=== PATIENT | female | born 1995 | race American Indian/Alaskan Native ===

== ENCOUNTER 2019-04-04 23:51 | Emergency (ER) | payer MEDICAID, OTHER ==
[2019-04-05 00:29] VITALS: BP 124/90
[2019-04-05 00:54] LABS: Basophils % (Auto) 0.5 % (0.0-1.8); Eosinophils % (Auto) 1.1 % (0.0-4.3); Hematocrit 34.2 % (30.3-42.9); Hemoglobin 11.7 gm/dl (10.1-14.3); Lymphocytes # (Auto) 0.7 K/mm3 (1.2-5.4); Lymphocytes % (Auto) 21.7 % (13.4-35.0); Mean Corpuscular HGB Conc 34 % (30-34); Mean Corpuscular Volume 94 fl (79-97); Monocytes # (Auto) 0.2 K/mm3 (0.0-0.8); Monocytes % (Auto) 8.1 % (0.0-7.3); Platelet Count 204 K/mm3 (140-440); Red Blood Count 3.64 M/mm3 (3.65-5.03); Red Cell Distribution Width 13.1 % (13.2-15.2)
[2019-04-05 01:13] LABS: BUN/Creatinine Ratio 28; Blood Urea Nitrogen 14 mg/dL (7-17); Calcium 10.3 mg/dL (8.4-10.2); Hemolysis Index 25
[2019-04-05] MEDS ORDERED: DELTASONE PO STA (03:36)
--- NOTE | 2019-04-05 03:41 | Emergency Department Report ---
ED General Adult HPI - General Chief complaint: Fever Stated complaint: FEVER Time Seen by Provider: 04/05/19 03:34 Source: patient, EMS Mode of arrival: Wheelchair Limitations: No Limitations - History of Present Illness Initial comments: 23-year-old Citizen Of [place] female with a known history of arthritis, lupus/chronic pain presents emergency department complaining of a pain flareup. States she did not have a medication for the last few months due to being incarcerated. She was just released today. She reports no chest pain or shortness of breath, no presyncope, no fevers, chills, sweats. She is a patient at the clinic clinic and instructed to follow-up she can get back on prednisone and Plaquenil -: Gradual, days(s) Location: upper extremity (pain involving the thighs. Extremities. Of the to rso) Radiation: non-radiation Quality: aching, dull Consistency: constant Associated Symptoms: denies: chest pain, cough, diaphoresis, fever/chills, malaise, nausea/vomiting, shortness of breath, syncope, weakness - Related Data Previous Rx's Medication Instructions Recorded Last Taken Type methOCARBAMOL [Robaxin TAB] 750 mg PO Q8H #14 tablet 04/05/19 Unknown Rx predniSONE [Deltasone] 50 mg PO QDAY #10 tab 04/05/19 Unknown Rx Allergies Allergy/AdvReac Type Severity Reaction Status Date / Time acetaminophen [From Percocet] Allergy Hives Verified 04/05/19 00:35 latex Allergy Hives Verified 04/05/19 00:34 oxycodone [From Percocet] Allergy Hives Verified 04/05/19 00:35 ED Review of Systems ROS: Stated complaint: FEVER Other details as noted in HPI Constitutional: denies: chills, fever Eyes: denies: eye pain, eye discharge, vision change ENT: denies: ear pain, throat pain Respiratory: denies: cough, shortness of breath, wheezing Cardiovascular: denies: chest pain, palpitations Endocrine: no symptoms reported Gastrointestinal: denies: abdominal pain, nausea, diarrhea Genitourinary: denies: urgency, dysuria, discharge Musculoskeletal: denies: back pain, joint swelling, arthralgia Skin: denies: rash, lesions Neurological: denies: headache, weakness, paresthesias Psychiatric: denies: anxiety, depression Hematological/Lymphatic: denies: easy bleeding, easy bruising ED Past Medical Hx - Past Medical History Previous Medical History?: Yes Hx Arthritis: Yes (Rheumatoid) Additional medical history: LUPUS, IMPAIRED MOBILITY, CHronic Pain - Surgical History Past Surgical History?: No - Social History Smoking Status: Current Every Day Smoker Substance Use Type: Marijuana - Medications Home Medications: Home Medications Medication Instructions Recorded Confirmed Last Taken Type methOCARBAMOL [Robaxin TAB] 750 mg PO Q8H #14 tablet 04/05/19 Unknown Rx predniSONE [Deltasone] 50 mg PO QDAY #10 tab 04/05/19 Unknown Rx ED Physical Exam - General Limitations: No Limitations General appearance: alert, in no apparent distress - Head Head exam: Present: atraumatic, normocephalic - Eye Eye exam: Present: normal appearance, PERRL, EOMI Pupils: Present: normal accommodation - ENT ENT exam: Present: normal exam, normal orophraynx, mucous membranes moist, TM's normal bilaterally - Neck Neck exam: Present: normal inspection - Respiratory Respiratory exam: Present: normal lung sounds bilaterally. Absent: respiratory distress, rales, rhonchi, chest wall tenderness - Cardiovascular Cardiovascular Exam: Present: regular rate, normal rhythm. Absent: systolic murmur, diastolic murmur, rubs, gallop - GI/Abdominal GI/Abdominal exam: Present: soft, normal bowel sounds - Extremities Exam Extremities exam: Present: normal inspection - Back Exam Back exam: Present: normal inspection, paraspinal tenderness. Absent: CVA tenderness (R), CVA tenderness (L), muscle spasm, vertebral tenderness - Neurological Exam Neurological exam: Present: alert, oriented X3, CN II-XII intact, normal gait - Psychiatric Psychiatric exam: Present: normal affect, normal mood - Skin Skin exam: Present: warm, dry, intact, normal color. Absent: rash ED Course Vital Signs 04/05/19 00:12 Temperature 97.9 F Pulse Rate 90 Respiratory 18 Rate Blood Pressure 124/90 O2 Sat by Pulse 100 Oximetry ED Medical Decision Making - Lab Data Result diagrams: 04/05/19 00:39 04/05/19 00:39 - Medical Decision Making 3-year-old female presents history of rheumatoid arthritis and lupus presents most department for chronic pain. Requesting prednisone. States she is due to follow-up with [facility]. 2. Start her medications after being released from [facility]. No further complaints of concerns. Medications were provided in the emergency department. The risks were provided. Prescription Critical care attestation.: If time is entered above; I have spent that time in minutes in the direct care of this critically ill patient, excluding procedure time. ED Disposition Clinical Impression: Chronic pain, Medication refill Disposition: TO HOME OR SELFCARE Is pt being admited?: No Does the pt Need Aspirin: No Condition: Stable Instructions: Rheumatoid Arthritis (ED), Chronic Pain (ED) Prescriptions: predniSONE [Deltasone] 50 mg PO QDAY #10 tab methOCARBAMOL [Robaxin TAB] 750 mg PO Q8H #14 tablet Referrals: YAEL PERSON MD [Primary Care Provider] - 3-5 Days
== END 2019-04-05 04:30 | disposition home or self-care (01) ==
LOC: ED 23:51
DX: G89.29 Other chronic pain (principal); M06.9 Rheumatoid arthritis, unspecified; Z76.0 Encounter for issue of repeat prescription; M32.9 Systemic lupus erythematosus, unspecified; F17.200 Nicotine dependence, unspecified, uncomplicated; F12.10 Cannabis abuse, uncomplicated; Z88.5 Allergy status to narcotic agent; Z91.040 Latex allergy status
CPT/HCPCS: 36415; 80048; 84703; 85025; 99284; J7512

== ENCOUNTER 2020-06-04 09:51 | Emergency (ER) | payer MEDICAID ==
--- NOTE | 2020-06-04 13:14 | Emergency Department Report ---
ED General Adult HPI - General Chief complaint: Pain General Stated complaint: LUPUS Time Seen by Provider: 06/04/20 13:13 Source: patient, EMS Mode of arrival: Wheelchair Limitations: No Limitations - History of Present Illness Initial comments: 24-year-old -Polish female patient with history of SLE, RA, and chronic pain syndrome presents to ED with complaints of bilateral ankle pain and right- sided neck pain x3 days. Patient states " I am having a lupus flare" and reports she normally gets pain in her ankles and neck when her lupus flares up. She denies any injuries, fever/chills/sweats, headache, decreased range of motion of her neck or ankles, or back pain. Patient is dependent on a walker for ambulation and denies any changes. - Related Data Previous Rx's Medication Instructions Recorded Last Taken Type methOCARBAMOL [Robaxin TAB] 750 mg PO Q8H #14 tablet 06/04/20 Unknown Rx predniSONE [Deltasone] 50 mg PO QDAY #10 tab 06/04/20 Unknown Rx Allergies Allergy/AdvReac Type Severity Reaction Status Date / Time acetaminophen [From Percocet] Allergy Hives Verified 04/05/19 00:35 latex Allergy Hives Verified 04/05/19 00:34 oxycodone [From Percocet] Allergy Hives Verified 04/05/19 00:35 ED Review of Systems ROS: Stated complaint: LUPUS Other details as noted in HPI Constitutional: denies: chills, diaphoresis, fever, malaise, weakness Respiratory: denies: cough, shortness of breath Cardiovascular: denies: chest pain Gastrointestinal: denies: abdominal pain, nausea, vomiting Musculoskeletal: arthralgia. denies: joint swelling Neurological: denies: numbness, paresthesias ED Past Medical Hx - Past Medical History Previous Medical History?: Yes Hx Arthritis: Yes (Rheumatoid) Additional medical history: LUPUS, IMPAIRED MOBILITY, CHronic Pain - Surgical History Past Surgical History?: Yes Additional Surgical History: ectopic - fallopian tube removed - Social History Smoking Status: Never Smoker Substance Use Type: None - Medications Home Medications: Home Medications Medication Instructions Recorded Confirmed Last Taken Type methOCARBAMOL [Robaxin TAB] 750 mg PO Q8H #14 tablet 06/04/20 Unknown Rx predniSONE [Deltasone] 50 mg PO QDAY #10 tab 08/20/20 Unknown Rx ED Physical Exam - General Limitations: No Limitations General appearance: alert, in no apparent distress - Head Head exam: Present: atraumatic, normocephalic - Eye Eye exam: Present: normal appearance. Absent: scleral icterus - ENT ENT exam: Present: mucous membranes moist - Neck Neck exam: Present: tenderness (Right trapezius muscle tenderness noted, no vertebral tenderness noted), full ROM - Respiratory Respiratory exam: Present: normal lung sounds bilaterally. Absent: respiratory distress - Cardiovascular Cardiovascular Exam: Present: regular rate, normal rhythm. Absent: systolic murmur, diastolic murmur, rubs, gallop - Extremities Exam Extremities exam: Present: normal inspection, full ROM (Noted bilaterally of ankles without swelling or erythema). Absent: tenderness - Neurological Exam Neurological exam: Present: alert, oriented X3 - Psychiatric Psychiatric exam: Present: normal affect, normal mood - Skin Skin exam: Present: warm, dry, intact, normal color. Absent: rash, cyanosis, erythema, ecchymosis ED Course Vital Signs 06/04/20 09:52 Temperature 97.9 F Pulse Rate 93 H Respiratory 18 Rate Blood Pressure 126/85 O2 Sat by Pulse 100 Oximetry ED Medical Decision Making - Medical Decision Making Patient here with complaints of lupus flare. Her pain is bilateral her ankles and her neck and she reports this is normal for her lupus flare. She denies any red flag symptoms. No vertebral tenderness or bony tenderness is noted to palpation on exam. Patient states she follows with [facility]. Prednisone given p.o. and a prescription will be given for home along with Robaxin. She is well-appearing, her vitals are normal, she is stable for discharge home. Recommend follow-up with her auditor medical claims. Strict return precautions were discussed in detail with patient who verbalized understanding peer Critical care attestation.: If time is entered above; I have spent that time in minutes in the direct care of this critically ill patient, excluding procedure time. ED Disposition Clinical Impression: Lupus arthritis Disposition: - TO HOME OR SELFCARE Is pt being admited?: No Condition: Stable Instructions: Arthralgia (ED) Prescriptions: predniSONE [Deltasone] 50 mg PO QDAY #10 tab methOCARBAMOL [Robaxin TAB] 750 mg PO Q8H #14 tablet Referrals: PRIMARY CARE, [Primary Care Provider] - 3-5 Days
[2020-06-04] MEDS ORDERED: predniSONE 20 MG TAB PO ONE (13:44)
[2020-06-04 14:38] VITALS: BP 120/85
== END 2020-06-04 14:06 | disposition home or self-care (01) ==
LOC: ED 09:51
DX: M32.10 Systemic lupus erythematosus, organ or system involvement unspecified (principal); M19.90 Unspecified osteoarthritis, unspecified site; Z79.899 Other long term (current) drug therapy; Z91.040 Latex allergy status; Z88.8 Allergy status to other drugs, medicaments and biological substances
CPT/HCPCS: 99283; J7512

== ENCOUNTER 2020-08-07 12:12 | Emergency (ER) | payer MEDICAID ==
--- NOTE | 2020-08-07 13:21 | Event Note ---
ED Screening Note ED Screening Note: 25-year-old F [place] female with past medical history of lupus presents emergency department complaining of a onset of weakness and fatigue associated with cough fever shortness of breath which began after celebrating her birthday on the seventh of this month. Symptoms have been progressively worsening since the onset to the point that she has been experiencing some lightheadedness as well but she reports no chest pain or palpitations no abdominal pain or dysuria no hemoptysis no hematemesis. Plan will evaluate labs and also drug tox screen and EtOH due to her apparent speech pattern consistent with lethargy/intoxicating appearance Will evaluate chest x-ray for shortness of breath This initial assessment/diagnostic orders/clinical plan/treatment(s) is/are subject to change based on patients health status, clinical progression and re- assessment by fellow clinical providers in the ED. Further treatment and workup at subsequent clinical providers discretion. Patient/guardian urged not to elope from the ED as their condition may be serious if not clinically assessed and managed. Initial orders include:
[2020-08-07 15:31] LABS: Basophils % (Auto) 0.3 % (0.0-1.8); Eosinophils % (Auto) 0.3 % (0.0-4.3); Hematocrit 31.7 % (30.3-42.9); Lymphocytes # (Auto) 1.1 K/mm3 (1.2-5.4); Mean Corpuscular HGB Conc 35 % (30-34); Mean Corpuscular Volume 87 fl (79-97); Monocytes # (Auto) 0.9 K/mm3 (0.0-0.8); Monocytes % (Auto) 8.4 % (0.0-7.3); Platelet Count 406 K/mm3 (140-440); Red Blood Count 3.64 M/mm3 (3.65-5.03); Red Cell Distribution Width 13.2 % (13.2-15.2)
[2020-08-07] MEDS ORDERED: SODIUM CHLORIDE 0.9% 1000 ML 1,000 ML IV ONE (15:46)
--- NOTE | 2020-08-07 16:04 | Emergency Department Report ---
HPI - General Chief Complaint: Weakness Time Seen by Provider: 08/07/20 15:38 - HPI HPI: This is a 25-year-old female presents to the emergency department with complaint of some generalized weakness, nausea without vomiting, dehydration and intermittent shortness of breath, that has been going on for the past 2 weeks. She says that the symptoms started "3 days after my birthday" in which the patient was admittedly partying a lot. Patient says that she is able to drink water and keep it down but still feels dehydrated. She has a past medical histo ry of rheumatoid arthritis, lupus, chronic pain, and the patient ambulates with a walker at baseline. She has not taken anything for symptoms prior to presentation today. Patient also says that she had a fever with a T-max of 100.7 earlier today but she does not present with any fever and did not take any medication for her fever prior to arrival. ED Past Medical Hx - Past Medical History Previous Medical History?: Yes Hx Arthritis: Yes (Rheumatoid) Additional medical history: LUPUS, IMPAIRED MOBILITY, CHronic Pain - Surgical History Additional Surgical History: ectopic - fallopian tube removed - Social History Smoking Status: Never Smoker Substance Use Type: None - Medications Home Medications: Home Medications Medication Instructions Recorded Confirmed Last Taken Type methOCARBAMOL [Robaxin TAB] 750 mg PO Q8H #14 tablet 06/04/20 Unknown Rx predniSONE [Deltasone] 50 mg PO QDAY #10 tab 06/04/20 Unknown Rx Nitrofurantoin Isabella/M-Cryst 100 mg PO Q12HR #14 capsule 08/07/20 Unknown Rx [Macrobid CAP] Ondansetron [Zofran Odt] 4 mg PO Q8HR PRN #15 tab.rapdis 08/07/20 Unknown Rx ED Review of Systems ROS: Stated complaint: BACK/KIDNEY PAIN/N/V/LUPUS Other details as noted in HPI Comment: All other systems reviewed and negative Constitutional: fever, weakness Eyes: denies: eye pain, vision change ENT: denies: ear pain, throat pain Respiratory: shortness of breath. denies: cough Cardiovascular: denies: chest pain, palpitations Gastrointestinal: nausea. denies: abdominal pain, vomiting Genitourinary: denies: dysuria, discharge Musculoskeletal: myalgia. denies: joint swelling Skin: denies: rash, lesions Neurological: denies: headache, numbness Physical Exam - Physical Exam Vital Signs: Vital Signs 08/07/20 08/07/20 13:14 13:17 Temperature 98.0 F 98.0 F Pulse Rate 109 H 114 H Respiratory 15 15 Rate Blood Pressure 117/89 Blood Pressure 117/87 [Right] O2 Sat by Pulse 98 97 Oximetry Physical Exam: GENERAL: The patient is well-developed well-nourished. HENT: Normocephalic. Atraumatic. Patient has dry mucous membranes. EYES: Extraocular motions are intact. NECK: Supple. Trachea is midline. CHEST/LUNGS: Clear to auscultation. There is no respiratory distress noted. HEART/CARDIOVASCULAR: Regular. There is no tachycardia. There is no murmur. ABDOMEN: Abdomen is soft, nontender. Patient has normal bowel sounds. There is no abdominal distention. SKIN: Skin is warm and dry. NEURO: The patient is awake, alert, and oriented. The patient is cooperative. The patient has no focal neurologic deficits. Normal speech. Cranial nerves II through XII grossly intact. MUSCULOSKELETAL: There is no tenderness or deformity. Full range of motion. ED Course Vital Signs 08/07/20 08/07/20 13:14 13:17 Temperature 98.0 F 98.0 F Pulse Rate 109 H 114 H Respiratory 15 15 Rate Blood Pressure 117/89 Blood Pressure 117/87 [Right] O2 Sat by Pulse 98 97 Oximetry - Reevaluation(s) Reevaluation #1: 08/07/20 20:00 Lab Results 08/07/20 08/07/20 08/07/20 Range/Units 15:18 15:18 15:18 WBC 11.0 (4.5-11.0) K/mm3 RBC 3.64 L (3.65-5.03) M/mm3 Hgb 11.0 (10.1-14.3) gm/dl Hct 31.7 (30.3-42.9) % MCV 87 (79-97) fl MCH 30 (28-32) pg MCHC 35 H (30-34) % RDW 13.2 (13.2-15.2) % Plt Count 406 (140-440) K/mm3 Lymph % (Auto) 10.0 L (13.4-35.0) % Isabella % (Auto) 8.4 H (0.0-7.3) % Eos % (Auto) 0.3 (0.0-4.3) % Baso % (Auto) 0.3 (0.0-1.8) % Lymph # (Auto) 1.1 L (1.2-5.4) K/mm3 Isabella # (Auto) 0.9 H (0.0-0.8) K/mm3 Eos # (Auto) 0.0 (0.0-0.4) K/mm3 Baso # (Auto) 0.0 (0.0-0.1) K/mm3 Seg Neutrophils % 81.0 H (40.0-70.0) % Seg Neutrophils # 8.9 H (1.8-7.7) K/mm3 Sodium 137 (137-145) mmol/L Potassium 3.8 (3.6-5.0) mmol/L Chloride 97.2 L (98-107) mmol/L Carbon Dioxide 23 (22-30) mmol/L Anion Gap 21 mmol/L BUN 12 (7-17) mg/dL Creatinine 0.9 (0.6-1.2) mg/dL Estimated GFR > 60 ml/min BUN/Creatinine Ratio 13 % Glucose 97 (65-100) mg/dL Calcium 9.3 (8.4-10.2) mg/dL Total Bilirubin 0.40 (0.1-1.2) mg/dL AST 23 (5-40) units/L ALT 10 (7-56) units/L Alkaline Phosphatase 127 (35-129) units/L Total Protein 7.4 (6.3-8.2) g/dL Albumin 3.4 L (3.9-5) g/dL Albumin/Globulin Ratio 0.9 % TSH (0.270-4.200) mlU/mL Free T4 (0.76-1.46) ng/dL Urine Color (Yellow) Urine Turbidity (Clear) Urine pH (5.0-7.0) Ur Specific [place] (1.003-1.030) Urine Protein (Negative) mg/dL Urine Glucose (UA) (Negative) mg/dL Urine Ketones (Negative) mg/dL Urine Blood (Negative) Urine Nitrite (Negative) Urine Bilirubin (Negative) Urine Urobilinogen (<2.0) mg/dL Ur Leukocyte Esterase (Negative) Urine WBC (Auto) (0.0-6.0) /HPF Urine RBC (Auto) (0.0-6.0) /HPF U Epithel Cells (Auto) (0-13.0) /HPF Urine Bacteria (Auto) (Negative) /HPF Urine Yeast (Budding) /HPF Urine HCG, Qual (Negative) Urine Opiates Screen Urine Methadone Screen Ur Barbiturates Screen Ur Phencyclidine Scrn Ur Amphetamines Screen U Benzodiazepines Scrn Urine Cocaine Screen U Marijuana (THC) Screen Drugs of Abuse Note Plasma/Serum Alcohol < 0.01 (0-0.07) % 08/07/20 08/07/20 08/07/20 Range/Units 15:27 15:27 Unknown WBC (4.5-11.0) K/mm3 RBC (3.65-5.03) M/mm3 Hgb (10.1-14.3) gm/dl Hct (30.3-42.9) % MCV (79-97) fl MCH (28-32) pg MCHC (30-34) % RDW (13.2-15.2) % Plt Count (140-440) K/mm3 Lymph % (Auto) (13.4-35.0) % Isabella % (Auto) (0.0-7.3) % Eos % (Auto) (0.0-4.3) % Baso % (Auto) (0.0-1.8) % Lymph # (Auto) (1.2-5.4) K/mm3 Isabella # (Auto) (0.0-0.8) K/mm3 Eos # (Auto) (0.0-0.4) K/mm3 Baso # (Auto) (0.0-0.1) K/mm3 Seg Neutrophils % (40.0-70.0) % Seg Neutrophils # (1.8-7.7) K/mm3 Sodium (137-145) mmol/L Potassium (3.6-5.0) mmol/L Chloride (98-107) mmol/L Carbon Dioxide (22-30) mmol/L Anion Gap mmol/L BUN (7-17) mg/dL Creatinine (0.6-1.2) mg/dL Estimated GFR ml/min BUN/Creatinine Ratio % Glucose (65-100) mg/dL Calcium (8.4-10.2) mg/dL Total Bilirubin (0.1-1.2) mg/dL AST (5-40) units/L ALT (7-56) units/L Alkaline Phosphatase (35-129) units/L Total Protein (6.3-8.2) g/dL Albumin (3.9-5) g/dL Albumin/Globulin Ratio % TSH 0.243 L (0.270-4.200) mlU/mL Free T4 1.40 (0.76-1.46) ng/dL Urine Color (Yellow) Urine Turbidity (Clear) Urine pH (5.0-7.0) Ur Specific [place] (1.003-1.030) Urine Protein (Negative) mg/dL Urine Glucose (UA) (Negative) mg/dL Urine Ketones (Negative) mg/dL Urine Blood (Negative) Urine Nitrite (Negative) Urine Bilirubin (Negative) Urine Urobilinogen (<2.0) mg/dL Ur Leukocyte Esterase (Negative) Urine WBC (Auto) (0.0-6.0) /HPF Urine RBC (Auto) (0.0-6.0) /HPF U Epithel Cells (Auto) (0-13.0) /HPF Urine Bacteria (Auto) (Negative) /HPF Urine Yeast (Budding) /HPF Urine HCG, Qual (Negative) Urine Opiates Screen Presumptive negative Urine Methadone Screen Presumptive negative Ur Barbiturates Screen Presumptive negative Ur Phencyclidine Scrn Presumptive negative Ur Amphetamines Screen Presumptive negative U Benzodiazepines Scrn Presumptive negative Urine Cocaine Screen Presumptive negative U Marijuana (THC) Screen Presumptive negative Drugs of Abuse Note Disclamer Plasma/Serum Alcohol (0-0.07) % 08/07/20 Range/Units Unknown WBC (4.5-11.0) K/mm3 RBC (3.65-5.03) M/mm3 Hgb (10.1-14.3) gm/dl Hct (30.3-42.9) % MCV (79-97) fl MCH (28-32) pg MCHC (30-34) % RDW (13.2-15.2) % Plt Count (140-440) K/mm3 Lymph % (Auto) (13.4-35.0) % Isabella % (Auto) (0.0-7.3) % Eos % (Auto) (0.0-4.3) % Baso % (Auto) (0.0-1.8) % Lymph # (Auto) (1.2-5.4) K/mm3 Isabella # (Auto) (0.0-0.8) K/mm3 Eos # (Auto) (0.0-0.4) K/mm3 Baso # (Auto) (0.0-0.1) K/mm3 Seg Neutrophils % (40.0-70.0) % Seg Neutrophils # (1.8-7.7) K/mm3 Sodium (137-145) mmol/L Potassium (3.6-5.0) mmol/L Chloride (98-107) mmol/L Carbon Dioxide (22-30) mmol/L Anion Gap mmol/L BUN (7-17) mg/dL Creatinine (0.6-1.2) mg/dL Estimated GFR ml/min BUN/Creatinine Ratio % Glucose (65-100) mg/dL Calcium (8.4-10.2) mg/dL Total Bilirubin (0.1-1.2) mg/dL AST (5-40) units/L ALT (7-56) units/L Alkaline Phosphatase (35-129) units/L Total Protein (6.3-8.2) g/dL Albumin (3.9-5) g/dL Albumin/Globulin Ratio % TSH (0.270-4.200) mlU/mL Free T4 (0.76-1.46) ng/dL Urine Color Yellow (Yellow) Urine Turbidity Slightly-cloudy (Clear) Urine pH 6.0 (5.0-7.0) Ur Specific [place] 1.010 (1.003-1.030) Urine Protein <15 mg/dl (Negative) mg/dL Urine Glucose (UA) Neg (Negative) mg/dL Urine Ketones Neg (Negative) mg/dL Urine Blood Sm (Negative) Urine Nitrite Neg (Negative) Urine Bilirubin Neg (Negative) Urine Urobilinogen 4.0 (<2.0) mg/dL Ur Leukocyte Esterase Lg (Negative) Urine WBC (Auto) 155.0 H (0.0-6.0) /HPF Urine RBC (Auto) 6.0 (0.0-6.0) /HPF U Epithel Cells (Auto) 4.0 (0-13.0) /HPF Urine Bacteria (Auto) 1+ (Negative) /HPF Urine Yeast (Budding) 1+ /HPF Urine HCG, Qual Negative (Negative) Urine Opiates Screen Urine Methadone Screen Ur Barbiturates Screen Ur Phencyclidine Scrn Ur Amphetamines Screen U Benzodiazepines Scrn Urine Cocaine Screen U Marijuana (THC) Screen Drugs of Abuse Note Plasma/Serum Alcohol (0-0.07) % ED Medical Decision Making - Lab Data Result diagrams: 08/07/20 15:18 08/07/20 15:18 - EKG Data -: EKG Interpreted by Me EKG shows normal: sinus rhythm, axis, intervals, QRS complexes, ST-T waves Rate: normal - EKG Data When compared to previous EKG there are: previous EKG unavailable Interpretation: normal EKG - Radiology Data Radiology results: image reviewed interpreted by me: Chest x-ray does not show any acute process. There are no pleural effusions, obvious pneumonia and there is no pneumothorax. No significant cardiomegaly. - Medical Decision Making This patient presents with the complaint of some generalized weakness, nausea without vomiting, feeling dehydrated and intermittent shortness of breath, and all the symptoms have been going on for the past 2 weeks. On examination the patient does not have any focal, motor or sensory deficits and her cranial nerves are intact. She has some dry mucous membranes and dry lips. Heart and lung sounds are normal to auscultation. An EKG was done that does not show any morphology consistent with ST elevation myocardial infarction or any dysrhythmia. Chest x-ray does not show any pneumonia, pleural effusions, pneumothorax, focal consolidation, or any acute process. Patient's labs have been mostly unremarkable except for a urinary tract infection with greater than 180 WBCs. The patient was given IV fluid resuscitation, a dose of steroids, and a dose of Rocephin. She was reevaluated multiple times over multiple hours and is feeling improved. Patient is able to ambulate at her baseline status with her walker as she has a history of impaired mobility. Patient says that she uses her front end architect as a primary care physician, but I have also given her some referrals for local primary care physicians and clinics. She has been instructed to return to the emergency department with any worsening of her symptoms or with any acute distress. Critical Care Time: No Critical care attestation.: If time is entered above; I have spent that time in minutes in the direct care of this critically ill patient, excluding procedure time. ED Disposition Clinical Impression: Dehydration, Lupus UTI (urinary tract infection) Qualifiers: Urinary tract infection type: acute cystitis Hematuria presence: without hematuria Qualified Code(s): N30.00 - Acute cystitis without hematuria Disposition: TO HOME OR SELFCARE Is pt being admited?: No Condition: Stable Instructions: Dehydration (ED), Urinary Tract Infection in Women (ED), Acute Nausea and Vomiting (ED) Additional Instructions: Please follow-up with a primary care physician in the next few days. Increase your oral rehydration. Take the antibiotics as prescribed. Return to the emergency department with any worsening of your symptoms, new or concerning symptoms not addressed during this current emergency department visit, or with any acute distress. Prescriptions: Nitrofurantoin Isabella/M-Cryst [Macrobid CAP] 100 mg PO Q12HR #14 capsule Ondansetron [Zofran Odt] 4 mg PO Q8HR PRN #15 tab.rapdis PRN Reason: Nausea Referrals: GET RIGGS MD [Primary Care Provider] - 2-3 Days LUIS MENON MD [Staff Physician] - 2-3 Days [facility] [Provider Group] - 2-3 Days Time of Disposition: 18:19
[2020-08-07] MEDS ORDERED: methylPREDNISolone Sod Succinate 125 MG/2 ML INJ IV ONE (16:14)
[2020-08-07] MEDS ORDERED: IPRATROPIUM/ALBUTEROL SULFATE 3 ML AMPUL.NEB IH ONE (16:14)
[2020-08-07 16:35] LABS: Bacteria,Urine 1+ /HPF (Negative); Bilirubin,Urine NEG (Negative); Blood,Urine SM (Negative); Color,Urine Yellow (Yellow); Protein,Urine <15 mg/dL mg/dL (Negative)
[2020-08-07 16:41] LABS: HCG Qualitative,Urine Negative (Negative)
[2020-08-07 16:45] LABS: Amphetamine Screen,Urine PRESUMPTIVE NEGATIVE; Benzodiazepines Screen,Urine PRESUMPTIVE NEGATIVE; Cannabinoid Screen,Urine PRESUMPTIVE NEGATIVE; Cocaine Screen,Urine PRESUMPTIVE NEGATIVE; Methadone Screen,Urine PRESUMPTIVE NEGATIVE; Opiate Screen,Urine PRESUMPTIVE NEGATIVE
[2020-08-07] MEDS ORDERED: cefTRIAXone/NS 1 GM/50 ML 1 GM/50 ML BAG IV ONE (16:47)
--- NOTE | 2020-08-07 16:51 | XRay Report ---
CHEST 1 VIEW INDICATION / CLINICAL INFORMATION: weakness. COMPARISON: 04/26/2020 FINDINGS: SUPPORT DEVICES: None. HEART / MEDIASTINUM: No significant abnormality. LUNGS / PLEURA: No significant pulmonary or pleural abnormality. No pneumothorax. ADDITIONAL FINDINGS: No significant additional findings. IMPRESSION: No acute disease or interval change from 04/26/2020. Signer Name: Yan Pastrana MD FACR Signed: 08/07/2020 4:46 PM Workstation Name: [id number]
[2020-08-07 17:11] LABS: Alanine Aminotransferase 10 units/L (7-56); Albumin 3.4 g/dL (3.9-5); BUN/Creatinine Ratio 13; Blood Urea Nitrogen 12 mg/dL (7-17); Calcium 9.3 mg/dL (8.4-10.2); Hemolysis Index 8
[2020-08-07 20:53] VITALS: BP 118/87
== END 2020-08-07 20:51 | disposition home or self-care (01) ==
LOC: ED 12:12
DX: N39.0 Urinary tract infection, site not specified (principal); E86.0 Dehydration; M32.9 Systemic lupus erythematosus, unspecified; M19.91 Primary osteoarthritis, unspecified site; Z98.890 Other specified postprocedural states; Z79.899 Other long term (current) drug therapy; Z91.040 Latex allergy status; Z88.8 Allergy status to other drugs, medicaments and biological substances
CPT/HCPCS: 36415; 71045; 80053; 80307; 81001; 81025; 84439; 84443; 85025; 93005; 94640; 96361; 96365; 96366; 96375; 99284; J0696; J2930; J7030; 80320; G0480